=== PATIENT | female | born 1985 | race African-American/Black ===

== ENCOUNTER 2021-05-22 09:23 | Emergency (ER) | payer SELFPAY ==
[~2021-05-22] VITALS: Ht 172.7 cm; Wt 59.0 kg
[2021-05-22 10:12] VITALS: BP 125/85
== END 2021-05-22 10:20 | disposition home or self-care (01) ==
LOC: ER 09:23
DX: F10.129 Alcohol abuse with intoxication, unspecified (principal); R45.89 Other symptoms and signs involving emotional state; Y90.9 Presence of alcohol in blood, level not specified
CPT/HCPCS: 99283